=== PATIENT | female | born 1955 | race Caucasian/White ===

== ENCOUNTER 2018-02-07 10:15 | Outpatient (CLI) | payer OTHER | END 2018-02-07 11:00 | disposition home or self-care (01) | LOC: NUCLEAR 10:15 | DX: E21.2 Other hyperparathyroidism (principal) | CPT/HCPCS: 78072; A9500 ==

== ENCOUNTER 2019-12-21 10:18 | Outpatient (CLI) | payer OTHER | END 2019-12-21 10:40 | disposition home or self-care (01) | LOC: MAMO-SONO 10:18 | PROVIDERS: ATTEND General Practice | DX: Z12.31 Encounter for screening mammogram for malignant neoplasm of breast (principal); Z12.39 Encounter for other screening for malignant neoplasm of breast ==

== ENCOUNTER 2020-01-01 13:20 | Outpatient (CLI) | payer OTHER | END 2020-01-01 13:21 | disposition home or self-care (01) | LOC: NUCLEAR 13:20 | PROVIDERS: ATTEND General Practice | DX: M80.00XA Age-related osteoporosis with current pathological fracture, unspecified site, initial encounter for fracture (principal); M85.89 Other specified disorders of bone density and structure, multiple sites ==

== ENCOUNTER 2020-11-12 17:08 | Outpatient (CLI) | payer OTHER | END 2020-11-12 17:21 | disposition home or self-care (01) | LOC: RAD 17:08 | DX: S22.43XA Multiple fractures of ribs, bilateral, initial encounter for closed fracture (principal); X58.XXXA Exposure to other specified factors, initial encounter; Y93.89 Activity, other specified; Y92.89 Other specified places as the place of occurrence of the external cause; Y99.8 Other external cause status ==

== ENCOUNTER 2021-09-21 09:00 | Outpatient (CLI) | payer OTHER | END 2021-09-21 09:15 | disposition home or self-care (01) | LOC: PPH VACUNA 09:00 | PROVIDERS: ATTEND Emergency Medicine Pediatric Emergency Medicine | DX: Z23 Encounter for immunization (principal) ==

== ENCOUNTER 2022-03-15 10:30 | Outpatient (CLI) | payer OTHER | END 2022-03-15 10:55 | disposition home or self-care (01) | LOC: MAMO-SONO 10:30 | PROVIDERS: ATTEND Internal Medicine Endocrinology, Diabetes & Metabolism | DX: Z12.39 Encounter for other screening for malignant neoplasm of breast (principal) ==

== ENCOUNTER 2023-02-28 12:37 | Outpatient (CLI) | payer OTHER | END 2023-02-28 12:40 | disposition home or self-care (01) | LOC: NUCLEAR 12:37 | PROVIDERS: ATTEND General Practice | DX: I65.29 Occlusion and stenosis of unspecified carotid artery (principal) ==

== ENCOUNTER 2023-09-05 14:13 | Outpatient (CLI) | payer OTHER | END 2023-09-05 14:19 | disposition home or self-care (01) | LOC: RAD 14:13 | PROVIDERS: ATTEND Internal Medicine Endocrinology, Diabetes & Metabolism | DX: M81.0 Age-related osteoporosis without current pathological fracture (principal) ==

== ENCOUNTER 2023-09-21 12:43 | Outpatient (CLI) | payer OTHER | END 2023-09-21 12:46 | disposition home or self-care (01) | LOC: SONOGRAMA 12:43 | PROVIDERS: ATTEND General Practice | DX: Z13.29 Encounter for screening for other suspected endocrine disorder (principal); E21.3 Hyperparathyroidism, unspecified ==